=== PATIENT | female | born 1945 | race Caucasian/White ===

== ENCOUNTER → 2021-11-11 00:59 | Outpatient (CLI) | payer MEDICARE, OTHER, SELFPAY ==
--- NOTE | 2021-11-11 11:00 | DI.NM_ITS ---
APPROVED REPORT Exam: Exercise Treadmill Patient Location: Out-Patient Room/Bed: Stress Nurse: Cecily Escobedo RN Ordering Provider:LUISA HERNANDEZ, Contact Number: [phone] BMI: 23.17 Baseline Rhythm: Sinus Rhythm Indications: ANGINA Medical History Medical History: HTN, HLD, Polymyalgia rheumatica Cardiac Medications: Aspirin Allergies: Sulfa, Statins Cardiac Risk Factors: HTN, Hyperlipidemia, FHX of CAD, Smoking (former, remote) Previous Cardiac Procedures: None Pretest Chest Pain Characteristics: No chest pain Exercise History: Indeterminate Physical Disabilities: None Lung Sounds: Clear to auscultation Heart Sounds: Regular Stress Test Details Test: Exercise stress testing was performed using a Leonard protocol. Nuclear Acquisition: Rest Tc-99m/Stress Tc-99m 1 day Rest Isotope: Tc-99m Sestamibi. Dose: 10.1 Date: 11/11/2021 Injection Time: 1100 Stress Isotope: Tc-99m Sestamibi. Dose: 32.0 Date: 11/11/2021 Injection Time: 1303 HR Resting HR Supine: 68 bpm Max Heart Rate (APMHR): 142.035182 bpm Resting HR Standin bpm Target HR (85% APMHR): 120.036483 bpm Max HR Achieved: 176 bpm % of APMHR: 123.94 Recovery HR: 92 bpm HR response to stress: Normal HR response to stress BP Resting BP Supine: 168/66 mmHg Resting BP Standin/86 mmHg Max BP: 214/58 mmHg Recovery BP: 154/56 mmHg BP response to stress: Normal blood pressure response to stress. Comment: Hypertensive at baseline. ECG Resting ECG: Sinus Rhythm Ectopy: None Stress ECG: Sinus Tachycardia ST Change: Upsloping/Horizontal ST depression Lead(s): II, III, aVL, V4, V5, V6 Stage: [address] Deviation: 2 mm Arrhythmia: PACs Recovery ECG: Sinus Rhythm Recovery ST Change: Downsloping ST depression Lead(s): II, III, aVF, V4, V5, V6 Recovery ST Deviation: 2 mm Recovery Arrhythmia: PACs Comment: ST depressions returning to baseline in minute 12 of recovery period Clinical Reason for Termination: Dyspnea, Leg fatigue Stress Symptoms: Dyspnea, Headache Exercise duration: 7 min45 sec Highest Stage Reached: Stage 3: 3.4 mph at 14% grade. Exercise capacity: 9.77 METs Gutierrez Treadmill Score: -2 Rate Pressure Product: [id number] Stress ECG Conclusion 1. Resting electrocardiogram was within normal limits 2. The patient exercised on the Leonard protocol and completed a workload of 9.77 METS 3. Mild resting hypertension. Normal hemodynamic response to exercise. The patient achieved greater than 100% of predicted heart rate for age 4. At peak exercise there was J-point depression with upsloping STs, equivocal for myocardial ischemi a. In recovery STs became downsloping 5. See MPI report Gutierrez Treadmill Score is -2 which is Moderate risk. Stress Test Summary STAGE Time (mins) Speed (mph) Grade (%) HR BP SYMPTOMS METS Supine 68 168/66 Standing 78 174/86 SpO2 97% 1 3 1.7 10 109 200/66 4.6 2 6 2.5 12 128 212/60 mild SOB, SpO2 93% 7 1 min recovery 130 214/58 3 min recovery 103 192/58 6 min recovery 92 154/56 SpO2 98% MPI Conclusion Normal myocardial perfusion without evidence of ischemia or prior infarction EF 87%, normal wall motion Radiologist Interpretation Radiologist agrees with Information Systems Security Developer's Interpretation. Radiologist Interpretation by: Reyes Pina MD Interpretation Date/Time: 11/12/2021 09:33:01
== END ==
PROVIDERS: PCP Internal Medicine; Visit Provider Family Medicine
DX: I20.9 Angina pectoris, unspecified (principal)
CPT/HCPCS: 78452; 93016; 93018; 93017